=== PATIENT | female | born 1980 | race Caucasian/White ===

== ENCOUNTER 2017-08-30 11:47 | Emergency (ER) | payer BC ==
[2017-08-30 13:23] LABS: Urine Blood 1+ (NEG); Urine Glucose NEGATIVE (NEG); Urine Protein NEGATIVE (NEG); Urine Specific Gravity 1.015 (1.005-1.030); Urine pH 5.5 (5.0-7.0)
[2017-08-30 13:33] LABS: Urine Bacteria <20 /HPF (<20); Urine Culture Reflex Order REFLEXED
--- NOTE | 2017-08-30 13:42 | EDPHYS ---
Physician Documentation [facility] Name: Ольга Mayo Age: 37 yrs Sex: Female : 1980 Arrival Date: 08/30/2017 Time: 11:51 Bed 7 Private MD: ED Physician Jensen Lamar HPI: 08/30 12:58 This 37 yrs old Female presents to ER via Ambulatory with complaints of jr8 Cough, Vaginal Itching, Vaginal Pain. 12:58 Onset: The symptoms/episode began/occurred acutely, 2 day(s) ago. Severity of symptoms: jr8 At their worst the symptoms were mild, in the emergency department the symptoms are unchanged. Associated signs and symptoms: The patient has no apparent associated signs or symptoms. The patient has not experienced similar symptoms in the past. The patient has not recently seen a physician. Patient stated that she has had dry cough for 2 days. Had unprotected sex with boyfriend and is now having burning to vaginal region and urinary complaints. Denies discharge or bleeding . 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 - Social history:: Smoking status: Patient/guardian denies using tobacco. ROS: 12:58 Eyes: Negative for injury, pain, redness, and discharge, ENT: Negative for injury, jr8 pain, and discharge, Neck: Negative for injury, pain, and swelling, Cardiovascular: Negative for chest pain, palpitations, and edema, Abdomen/GI: Negative for abdominal pain, nausea, vomiting, diarrhea, and constipation, Back: Negative for injury and pain, MS/Extremity: Negative for injury and deformity, Skin: Negative for injury, rash, and discoloration, Neuro: Negative for headache, weakness, numbness, tingling, and seizure. 12:58 Respiratory: Positive for cough, Negative for dyspnea on exertion, shortness of breath, sputum production, wheezing. 12:58 : Positive for urinary symptoms, burning with urination, vaginal itching, Negative for vaginal bleeding, vaginal discharge. Exam: 12:58 Eyes: Pupils equal round and reactive to light, extra-ocular motions intact. Lids and jr8 lashes normal. Conjunctiva and sclera are non-icteric and not injected. Cornea within normal limits. Periorbital areas with no swelling, redness, or edema. ENT: Nares patent. No nasal discharge, no septal abnormalities noted. Tympanic membranes are normal and external auditory canals are clear. Oropharynx with no redness, swelling, or masses, exudates, or evidence of obstruction, uvula midline. Mucous membranes moist. Neck: Trachea midline, no thyromegaly or masses palpated, and no cervical lymphadenopathy. Supple, full range of motion without nuchal rigidity, or vertebral point tenderness. No Meningismus. Cardiovascular: Regular rate and rhythm with a normal S1 and S2. No gallops, murmurs, or rubs. Normal PMI, no JVD. No pulse deficits. Respiratory: Lungs have equal breath sounds bilaterally, clear to auscultation and percussion. No rales, rhonchi or wheezes noted. No increased work of breathing, no retractions or nasal flaring. Abdomen/GI: Soft, non-tender, with normal bowel sounds. No distension or tympany. No guarding or rebound. No evidence of tenderness throughout. Back: No spinal tenderness. No costovertebral tenderness. Full range of motion. Skin: Warm, dry with normal turgor. Normal color with no rashes, no lesions, and no evidence of cellulitis. MS/ Extremity: Pulses equal, no cyanosis. Neurovascular intact. Full, normal range of motion. Neuro: Awake and alert, GCS 15, oriented to person, place, time, and situation. Cranial nerves II-XII grossly intact. Motor strength 5/5 in all extremities. Sensory grossly intact. Cerebellar exam normal. Normal gait. 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 Vital Signs: 12:02 BP 144 / 96; Pulse 79; Resp 18; Temp 97.9(TE); Pulse Ox 100% on R/A; Weight 89.81 kg; hj Height 5 ft. 7 in. (170.18 cm); Pain 6/10; 12:22 BP 130 / 62; Pulse 88; Resp 16; Pulse Ox 100% on R/A; aj 13:27 BP 126 / 84; Pulse 79; Resp 18; Pulse Ox 100% on R/A; aj 12:02 Body Mass Index 31.01 (89.81 kg, 170.18 cm) hj MDM: 12:21 Patient medically screened. [facility] 13:39 Data reviewed: vital signs, nurses notes, lab test result(s), and as a result, I will jr8 discharge patient. Data interpreted: Pulse oximetry: on room air is 100 %. Interpretation: normal. Counseling: I had a detailed discussion with the patient and/or guardian regarding: the historical points, exam findings, and any diagnostic results supporting the discharge/admit diagnosis, lab results, the need for outpatient follow up, a family practitioner, to return to the emergency department if symptoms worsen or persist or if there are any questions or concerns that arise at home. 08/30 12:42 Order name: Urine Microscopic Only; Complete Time: 13:38 [facility] 08/30 13:15 Order name: Urine Dipstick--Ancillary (enter results); Complete Time: 13:29 08/30 13:15 Order name: Urine --Ancillary (enter results); Complete Time: 13:29 08/30 13:35 Order name: Urine Culture [facility] 08/30 12:42 Order name: Urine Test (obtain specimen); Complete Time: 13:16 [facility] 08/30 12:42 Order name: Urine Dipstick-Ancillary (obtain specimen); Complete Time: 13:16 [facility] Administered Medications: 13:49 Drug: Rocephin (cefTRIAXone) 250 mg Route: IM; Site: left gluteus; aj 14:07 Follow up: Response: No adverse reaction aj 13:49 Drug: AZITHromycin 1 grams Route: PO; aj 14:07 Follow up: Response: No adverse reaction aj Disposition: 18:32 Co-signature as Attending Physician, Jensen Lamar MD. rn Disposition: 08/30/17 13:41 Discharged to Home. Impression: Dysuria, Cough, Vaginitis, vulvitis and vulvovaginitis in diseases classified elsewhere. - Condition is Stable. - Discharge Instructions: Dysuria, Cough, Adult. - Prescriptions for Doxycycline Hyclate 100 mg Oral Tablet - take 1 tablet by ORAL route every 12 hours; 20 tablet. Tessalon Perles 100 mg Oral Capsule - take 1 capsule by ORAL route every 8 hours As needed; 15 capsule. - Medication Reconciliation Form, Thank You Letter, Antibiotic Education, Prescription Opioid Use form. - Follow up: Private Physician; When: 5 - 6 days; Reason: Recheck today's complaints, Continuance of care, Re-evaluation by your physician. - Problem is new. - Symptoms have improved. Signatures: Dispatcher [employer] Sylvia Jamison, RN RN Jensen Vann MD MD rn Roszak, Josh, PA PA jr8 Elias Kemp RN RN hj
--- NOTE | 2017-08-30 13:42 | ER ---
Nurse's Notes [facility] Name: Ольга Mayo Age: 37 yrs Sex: Female : 1980 Arrival Date: 08/30/2017 Time: 11:51 Bed 7 Private MD: Diagnosis: Dysuria;Cough;Vaginitis, vulvitis and vulvovaginitis in diseases classified elsewhere Presentation: 08/30 11:59 Presenting complaint: Patient states: i have a cough since Wednesday morning, i am burning hj on my vagina area since Wednesday, reports burning urination; denies discharges or bleeding; denies fever and chills;. Transition of care: patient was not received from another setting of care. Onset of symptoms was August 30, 2017. Care prior to arrival: None. 11:59 Method Of Arrival: Ambulatory 11:59 Acuity: YELENA 3 hj Triage Assessment: 12:01 General: Appears in no apparent distress. uncomfortable, Behavior is calm, cooperative, hj appropriate for age. Pain: Complains of pain in groin Pain currently is 6 out of 10 on a pain scale. [facility]: 12:02 [facility] 08/05/2017 Historical: - Allergies: 12:01 No Known Allergies; hj - Home Meds: 12:01 None [Active]; hj - PMHx: 12:01 None; hj - PSHx: 12:01 Cholecystectomy; hj - Immunization history:: Adult Immunizations up to date. - Social history:: Smoking status: Patient/guardian denies using tobacco. Screenin:24 Abuse screen: Denies threats or abuse. Denies injuries from another. Nutritional aj screening: No deficits noted. Tuberculosis screening: No symptoms or risk factors identified. Fall Risk None identified. Assessment: 12:22 General: Appears in no apparent distress. comfortable, Behavior is calm, cooperative, aj appropriate for age. Neuro: Level of Consciousness is awake, alert, obeys commands, Oriented to person, place, time, situation. Respiratory: Airway is patent Respiratory effort is even, unlabored, Respiratory pattern is regular, symmetrical. : Reports burning with urination, pain in suprapubic area vaginal itching, since Wednesday. Derm: Skin is intact, is healthy with good turgor, Skin is pink, warm \T\ dry. normal. Vital Signs: 12:02 BP 144 / 96; Pulse 79; Resp 18; Temp 97.9(TE); Pulse Ox 100% on R/A; Weight 89.81 kg; hj Height 5 ft. 7 in. (170.18 cm); Pain 6/10; 12:22 BP 130 / 62; Pulse 88; Resp 16; Pulse Ox 100% on R/A; aj 13:27 BP 126 / 84; Pulse 79; Resp 18; Pulse Ox 100% on R/A; aj 12:02 Body Mass Index 31.01 (89.81 kg, 170.18 cm) hj ED Course: 11:51 Patient arrived in ED. mr 12:01 Triage completed. hj 12:02 Arm band placed on right wrist. hj 12:06 Sylvia Frye, MALIA is Primary Nurse. aj 12:21 Madhu Moreno PA is PHCP. jr8 12:21 Jensen Lamar MD is Attending Physician. jr8 12:24 Patient has correct armband on for positive identification. aj 13:16 Urine Dipstick--Ancillary (enter results) Sent. aj 14:06 No provider procedures requiring assistance completed. Patient did not have IV access aj during this emergency room visit. Administered Medications: 13:49 Drug: Rocephin (cefTRIAXone) 250 mg Route: IM; Site: left gluteus; aj 14:07 Follow up: Response: No adverse reaction aj 13:49 Drug: AZITHromycin 1 grams Route: PO; aj 14:07 Follow up: Response: No adverse reaction aj Outcome: 13:41 Discharge ordered by . jr8 14:06 Discharged to home ambulatory. aj 14:06 Condition: good 14:06 Discharge instructions given to patient, Instructed on discharge instructions, follow up and referral plans. medication usage, Demonstrated understanding of instructions, follow-up care, medications, Prescriptions given X 2. 14:07 Patient left the ED. aj Signatures: Sylvia Frye, Liza More RN mr Madhu Moreno PA PA jrElias León RN RN Corrections: (The following items were deleted from the chart) 12:04 12:02 Pulse 79bpm; Resp 18bpm; Pulse Ox 100% RA; Temp 97.9F Temporal; 89.81 kg; Height hj 5 ft. 7 in.; BMI: 31.0; Pain 6/10; hj
[2017-08-30] MEDS ORDERED: AZITHROMYCIN 250 MG TAB ONE (13:43)
[2017-08-30] MEDS ORDERED: CEFTRIAXONE 250 MG/VIAL ONE (13:43)
== END 2017-08-30 14:07 | disposition home or self-care (01) ==
LOC: ER 11:47
DX: N77.1 Vaginitis, vulvitis and vulvovaginitis in diseases classified elsewhere (principal); R05 Cough
CPT/HCPCS: 81003; 81015; 81025; 87086; 87088; 96372; 99283; J0696

== ENCOUNTER 2021-01-24 08:39 | Observation (INO) | payer BC ==
--- OUTSIDE RECORDS SUMMARY | 2021-01-24 08:41 | XMS REPORT | Continuity of Care Document ---
:1980 Author Organization [facility] t Address 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 Added automatic ally from request for surgery [id number] Obesity Obesity Problem Active [facility] Allergies, Adverse Reactions, Alerts Allergy Allergy Status Severity Reaction(s) Onset Inactive Treating Comm ents Source Name Type Date Date Clinician Chen Duffy Active Itching 2010-05 [facility] ty to 0-25 [facility] adverse 00:00: [facility]ospita reaction 00 l s to drug Family History Family Member Diagnosis Comments Start Date Stop Date Source Natural father Heart disease [facility] Natural mother [facility]pertension [facility] Social History Social Habit Start Date Stop Date Quantity Comments Source Alcohol intake 2020-08-07 2020-08-07 .14 /d [facility] 00:00:00 00:00:00 Tobacco use and 2020-08-07 2020-08-07 Never used [facility] exposure 00:00:00 00:00:00 Alcohol Comment 2019-09-21 2019-09-21 [facility] 00:00:00 00:00:00 Sex Ass[birth year] At [birth year] [facility] 00:00:00 00:00:00 Smoking Status Start Date Stop Date Source [facility] Ordered Filled Start Stop Current Ordering Indication Dosage Frequency Signature Comments Components Source Medication Medication Date Date Medication? Clinician (SIG) Name Name furosemide Yes [facility] (LASIX) 40 3-[address] mg tablet 00:00: Hospita 00 l potassium 2020-0 Yes [facility] chloride 3-17 st (Klor-Con 00:00: Hospita 10) 10 MEQ 00 l CR tablet amoxicillin amoxicillin No amoxicilli [facility] 875 mg 875 mg n 875 mg da tablet Take tablet Take tablet Medical 1 tablet 1 tablet Take 1 Group twice a day twice a day tablet by oral by oral twice a route with route with day by meals for meals for oral route 10 days. 10 days. with meals for 10 days. cephalexin cephalexin No cephalexin [facility] 500 mg 500 mg 500 mg da capsule capsule capsule Medica l Group furosemide furosemide No furosemide [facility] 80 mg 80 mg 80 mg da tablet tablet tablet Medical Group ibuprofen ibuprofen No ibuprofen [facility] 600 mg 600 mg 600 mg da tablet tablet tablet Medical Group ondansetron ondansetron No ondansetro [facility] HCl 4 mg HCl 4 mg n HCl 4 mg d a tablet tablet tablet Medical Group potassium potassium No potassium [facility] chloride ER chloride ER chloride da 20 mEq 20 mEq ER 20 mEq Medica l tablet,exte tablet,exte tablet,ext Group nded nded ended release release release prednisone prednisone No prednisone [facility] 10 mg 10 mg 10 mg da tablet Take tablet Take tablet Medical one tablet one tablet Take one Group by mouth by mouth tablet by bid for 7 bid for 7 mouth bid days with days with for 7 days meals then meals then with meals once a day once a day then once for 7 days for 7 days a day for with meals with meals 7 days with meals tramadol tramadol No tramadol [facility] 37.5 37.5 37.5 da mg-acetamin mg-acetamin mg-acetami Medical ophen 325 ophen 325 nophen 325 Group mg tablet mg tablet mg tablet Vital Signs Vital Name Observation Time Observation Value Comments Source BP Diastolic 2019-04-07 00:00:00 100 mm[Hg] [facility] Height 2019-04-07 00:00:00 66 [in_i] [facility] BMI (Body Mass 2019-04-07 00:00:00 30.5 kg/m2 [facility] Medical Index) Group BP Systolic 2019-04-07 00:00:00 167 mm[Hg] [facility] Body Weight 2019-04-07 00:00:00 189.1 [lb_av] [facility] BP Diastolic 2019-04-03 00:00:00 91 mm[Hg] [facility] Height 2019-04-03 00:00:00 66 [in_i] [facility] BMI (Body Mass 2019-04-03 00:00:00 30.6 kg/m2 [facility] Medical Index) Group BP Systolic 2019-04-03 00:00:00 145 mm[Hg] [facility] Body Weight 2019-04-03 00:00:00 189.6 [lb_av] [facility] Body height 2020-08-07 16:22:00 167.6 cm [facility] Body weight 2020-08-07 16:22:00 94.348 kg [facility] BMI 2020-08-07 16:22:00 33.57 kg/m2 [facility] Procedures Procedure Date / Time Performing Clinician Source Performed [place] INJECT TENDON 2020-08-07 16:38:23 Moody Agudelo [facility] SHEATH/LIGAMENT TYMPANOMETRY 2019-04-03 00:00:00 [facility] Cholecystectomy 2004-05-24 00:00:00 [facility] Plan of Care Planned Activity Planned Date Details Comments Source Future Scheduled Test COVID-19 VACCINE (1) [facility] [code = COVID-19 VACCINE (1)] Future Scheduled Test Hepatitis C screening [facility] (procedure) [code = 637093024] Future Scheduled Test Screening for [facility] malignant neoplasm of cervix (procedure) [code = 214278074] Future Scheduled Test INFLUENZA VACCINE [facility] [code = INFLUENZA VACCINE] Instructions Geovanna jones Group Encounters Start End Encounter Admission Attending Care Care Encounter Source Date/Time Date/Time Type Type Clinicians Facility Department ID 2020-08-07 2020-08-07 Office Agudelo, [id number] [facility] 10:56:31 11:44:28 Visit [facility] [id number] [facility] 3.430.2.7 Hospit a .[id number] l .8 2020-08-07 2020-08-07 Outpatient [facility] [id number] 00:00:00 00:00:[address] 2020-08-07 2020-08-07 Travel [id number] [facility] 00:00:00 00:00:[id number] 3.430.2.7 0.2.7.3.698 spita .[id number] 084.8 l .8 2019-10-04 2019-10-04 Outpatient AGUDELO, [facility] [id number] 00:00:00 00:00:00 VINCENT 819 Method i 2019-09-28 2019-09-28 Outpatient AGUDELO, [place] [id number] 00:00:00 00:00:00 VINCENT 381 Method i 2019-09-21 2019-09-21 Outpatient AGUDELO, [facility] [id number] 00:00:00 00:00:00 VINCENT 719 Method i 2019-09-21 2019-09-21 Outpatient AGUDELO, [facility] [id number] 00:00:00 00:00:00 VINCENT 771 Method i 2019-09-18 2019-09-18 Outpatient AGUDELO, [facility] [id number] 00:00:00 00:00:00 VINCENT 387 Method i 2019-04-07 2019-04-07 Valente [facility] [place] - [id number] [facility] 00:00:00 00:00:00 MD Selam: [address] - [address], [facility] [place] [address] , Ph. 2019-04-03 2019-04-03 Palshira [facility] [place] - [id number] [facility] 00:00:00 00:00:00 MD Selam: [address], [place] - [address] [place] [address] , Ph. Results Test Description Test Time Test Comments Results Result [facility] e Comments Hand/Upper 2020-07-22 Moody Agudelo MD [facility] Extremity 7 08/07/2020 12:50 Hospi talisha Injection/Arthro 16:38:23 PMHand/Upper Extremity centesis: R Injection/Arthrocentes thumb, R thumb is: R thumb, R thumb A1 A1Date/Time: 08/07/2020 11:38 AMConsent given by: patientSite marked: site markedTimeout: Immediately prior to procedure a time out was called to verify the correct patient, procedure, equipment, account support manager and site/side marked as required Supporting DocumentationIndicatio ns: pain and therapeutic Procedure DetailsSite: R thumb Location: - R thumb A1 Preparation: Patient was prepped and draped in the usual sterile fashion Right side:Needle size: 25 GRight thumb medications administered: 40 mg methylPREDNISolone acetate 40 mg/mL; 1 mL lidocaine 10 mg/mL (1 %)Patient tolerance: patient tolerated the procedure well with no immediate complications Injection Type: tendon sheath SARS coronavirus 2 RNA [Presence] in Respiratory speci men by 2019-09-22 20:40:13 GLENNY with probe detection Test Item Value Reference Range Interpretation Comme nts SARS coronavirus 2 RNA [Presence] in Respiratory Not detected Not-D etected specimen by GLENNY with probe detection (test code = 29501-7) [id number] 15:45:12 Test Item Value Reference Range Interpretation Comments Right (test code = Type C Peak is on Left Right) Left (test code = Left) Type C Peak is on Left [facility] [id number] 15:45:12 Test Item Value Reference Range Interpretation Comments Right (test code = Type C Peak is on Left Right) Left (test code = Left) Type C Peak is on Left [facility]
[2021-01-24] MEDS ORDERED: MORPHINE 2 MG/ML SYR ONE (09:46)
[2021-01-24] MEDS ORDERED: NA CHLORIDE 0.9% 1,000 ML ONE ×2 (09:46→12:44)
[2021-01-24] MEDS ORDERED: ONDANSETRON 4 MG/2 ML VIAL ONE ×2 (09:46→14:40)
[2021-01-24 09:48] LABS: Absolute Lymphocytes (CBC) 0.8 K/uL (0.7-4.9); Basophils % 0.5 % (0-1.3); Hematocrit 37.7 % (36.0-45.0); Lymphocytes % 9.7 % (15.3-44.8); MPV 10.1 fL (7.6-11.3); RBC Red Blood Cell Count 4.42 M/uL (3.86-4.86)
[2021-01-24 10:06] LABS: ALT/SGPT 37 U/L (12-78); AST/SGOT 19 U/L (15-37); Albumin 3.7 g/dL (3.4-5.0); Alkaline Phosphatase 75 U/L (45-117); BUN Blood Urea Nitrogen 9 mg/dL (7-18); Bicarbonate 26 mmol/L (21-32); Bilirubin Direct < 0.1 mg/dL (0-0.2); Bilirubin Total 0.2 mg/dL (0.2-1.0); Glucose Level 93 mg/dL (74-106); Lipase 213 U/L (73-393); Potassium 3.6 mmol/L (3.5-5.1); Protein, Total 7.8 g/dL (6.4-8.2); Sodium Level 138 mmol/L (136-145)
--- NOTE | 2021-01-24 10:43 | RAD REPORT ---
EXAM DESCRIPTION: CTAbdomen Pelvis W Contrast - 01/24/2021 10:31 am CLINICAL HISTORY: Abdominal pain. ABD PAIN COMPARISON: No comparisons TECHNIQUE: Biphasic CT imaging of the abdomen and pelvis was performed with 100 ml non-ionic IV cont rast. All CT scans are performed using dose optimization technique as appropriate and may include automated exposure control or mA/KV adjustment according to patient size. FINDINGS: The lung bases are clear. The liver, spleen, pancreas, adrenal glands and kidneys are within normal limits. Cholecystectomy. No bowel obstruction, free air, free fluid or abscess. There is moderately severe inflammation seen i nvolving the entire colon, but most severe involving the right colon. The appendix is normal. No aman dence of significant lymphadenopathy. No suspicious bony findings. IMPRESSION: Moderately severe pancolitis is present, greatest involving the right colon.
--- NOTE | 2021-01-24 11:08 | EDPHYS ---
Physician Documentation [facility] Name: Ольга Mayo Age: 40 yrs Sex: Female : 1980 Arrival Date: 01/24/2021 Time: 08:42 Bed 27 Private MD: ED Physician Rubia Seymour HPI: 01/24 09:04 This 40 yrs old Female presents to ER via Ambulatory with complaints of kb Abdominal Pain, Vomiting/Diarrhea. 09:04 The patient presents with abdominal pain right lower quadrant. Onset: The kb symptoms/episode began/occurred 4 day(s) ago. The symptoms do not radiate. Associated signs and symptoms: Pertinent positives: nausea, vomiting, and diarrhea, fever. The symptoms are described as constant. Modifying factors: The symptoms are alleviated by nothing, the symptoms are aggravated by pressure. Severity of pain: At its worst the pain was moderate in the emergency department the pain is unchanged. The patient has not experienced similar symptoms in the past. The patient has not recently seen a physician. Historical: - Allergies: 08:47 No Known Allergies; aa5 - PMHx: 08:47 None; aa5 - PSHx: 08:47 Cholecystectomy; section; aa5 - Immunization history:: Client reports having NOT received the Covid vaccine. - Social history:: Smoking status: unknown. ROS: 09:01 Respiratory: Negative for shortness of breath, cough, wheezing, and pleuritic chest kb pain. 09:01 Abdomen/GI: Positive for abdominal pain, nausea, vomiting, and diarrhea. 09:01 All other systems are negative. 09:02 Constitutional: Positive for fever. kb Exam: 09:00 Constitutional: This is a well developed, well nourished patient who is awake, alert, kb and in no acute distress. Head/Face: Normocephalic, atraumatic. ENT: Moist Mucous membranes Cardiovascular: Regular rate and rhythm with a normal S1 and S2. No gallops, murmurs, or rubs. No pulse deficits. Respiratory: Respirations even and unlabored. No increased work of breathing, no retractions or nasal flaring. Skin: Warm, dry with normal turgor. Normal color. MS/ Extremity: Pulses equal, no cyanosis. Neurovascular intact. Full, normal range of motion. Neuro: Awake and alert, GCS 15, oriented to person, place, time, and situation. Moves all extremities. Normal gait. Psych: Awake, alert, with orientation to person, place and time. Behavior, mood, and affect are within normal limits. 09:00 Abdomen/GI: Inspection: abdomen appears normal, Bowel sounds: normal, in all quadrants, Palpation: soft, in all quadrants, mild abdominal tenderness, in the right upper quadrant, moderate abdominal tenderness, in the right lower quadrant. Vital Signs: 08:48 BP 162 / 113; Pulse 79; Resp 16 S; Temp 98.9(O); Pulse Ox 97% on R/A; Weight 91.63 kg aa5 (R); Height 5 ft. 6 in. (167.64 cm) (R); Pain 10/10; 08:48 Body Mass Index 32.60 (91.63 kg, 167.64 cm) aa5 MDM: 08:50 Patient medically screened. kb 09:00 Data reviewed: vital signs, nurses notes. Data interpreted: Pulse oximetry: on room air kb is 97 %. Interpretation: normal. 11:03 Counseling: I had a detailed discussion with the patient and/or guardian regarding: the kb historical points, exam findings, and any diagnostic results supporting the discharge/admit diagnosis, lab results, radiology results, the need for further work-up and treatment in the hospital. Physician consultation: Madhu POSEY was contacted at 11:04, regarding admission, to the medical/surgical unit. patient's condition, and will see patient in ED. 01/24 08:50 Order name: Basic Metabolic Panel; Complete Time: 10:07 kb 01/24 08:50 Order name: CBC with Diff; Complete Time: 09:55 kb 01/24 08:50 Order name: Hepatic Function; Complete Time: 10:07 kb 01/24 08:50 Order name: Lipase; Complete Time: 10:07 kb 01/24 11:03 Order name: COVID-19 : Document "Date of Symptom Onset" if Symptomatic. kb 01/24 11:57 Order name: Fecal Leukocyte Stain 8 01/24 08:50 Order name: CT Abd/Pelvis - IV Contrast Only; Complete Time: 10:54 kb 01/24 11:57 Order name: Occult Blood 8 01/24 11:57 Order name: Ova And Parasites 8 01/24 11:57 Order name: Stool Culture [facility] 01/24 11:57 Order name: CDIFF [facility] 01/24 11:58 Order name: Fecal Leukocyte Stain [facility] 01/24 15:25 Order name: SARS-COV-2 RT PCR; Complete Time: 15:30 [facility] 01/24 08:50 Order name: IV Saline Lock; Complete Time: 09:16 kb 01/24 08:50 Order name: Labs collected and sent; Complete Time: 09:16 kb 01/24 08:50 Order name: Urine Dipstick-Ancillary (obtain specimen) kb Administered Medications: 09:23 Drug: morphine 4 mg Route: IVP; Site: right antecubital; aj2 09:24 Drug: NS 0.9% 1000 ml Route: IV; Rate: 1000 ml; Site: right antecubital; aj2 09:24 Drug: Zofran (Ondansetron) 4 mg Route: IVP; Site: right antecubital; aj2 11:02 CANCELLED (Physician Discretion): metroNIDAZOLE 500 mg PO once kb 11:02 CANCELLED (Physician Discretion): Cipro (ciprofloxacin) 500 mg PO once kb Disposition Summary: 01/24/21 11:07 Hospitalization Ordered Hospitalization Status: Inpatient Admission kb Provider: Levi Lamar Condition: Stable(01/24/21 11:07) kb Problem: new kb Symptoms: are unchanged kb Bed/Room Type: Standard kb Location: Telemetry/MedSurg (Inpatient)(01/24/21 21:01) Room Assignment: [facility](01/24/21 21:01) Diagnosis - Pancolitis kb Forms: - Medication Reconciliation Form kb - SBAR form kb Signatures: Dispatcher [employer] EDIN Amie Pollock, VICENTE-C [employer]-Ckb Adriana Ace RN RN iw Calderon, Audri RN RN Loulou See RN RN Tiffanie Valle aj2 Corrections: (The following items were deleted from the chart) 08:48 08:47 PSHx: Carotid endarterectomy; aa5 [email or web address] 09:02 09:01 Constitutional: Negative for fever, chills, and weight loss, kb kb 11:02 10:54 metroNIDAZOLE 500 mg PO once ordered. kb kb 11:02 10:54 Cipro (ciprofloxacin) 500 mg PO once ordered. kb kb 11:06 11:06 Home kb kb 11: 11:06 Stable kb kb 11:06 Pancolitis kb kb 15: 11:07 Telemetry/MedSurg (Inpatient) kb iw 11: kb iw : 15: [facility] ER HOLD iw cg : 15:27 ERHOLD- iw cg
--- NOTE | 2021-01-24 11:08 | ER ---
Nurse's Notes [facility] Name: Ольга Mayo Age: 40 yrs Sex: Female : 1980 Arrival Date: 01/24/2021 Time: 08:42 Bed 27 Private MD: Diagnosis: Pancolitis Presentation: 01/24 08:48 Chief complaint: Patient states: RLQ pain since Wednesday, vomiting and diarrhea. aa5 Coronavirus screen: diarrhea, nausea, vomiting. Ebola Screen: Patient negative for fever greater than or equal to 101.5 degrees Fahrenheit, and additional compatible Ebola Virus Disease symptoms. Initial Sepsis Screen: Does the patient meet any 2 criteria? No. Patient's initial sepsis screen is negative. Does the patient have a suspected source of infection? No. Patient's initial sepsis screen is negative. Risk Assessment: Do you want to hurt yourself or someone else? Patient reports no desire to harm self or others. Onset of symptoms was 2020. 08:48 Method Of Arrival: Ambulatory aa5 08:48 Acuity: YELENA 3 aa5 Historical: - Allergies: 08:47 No Known Allergies; aa5 - PMHx: 08:47 None; aa5 - PSHx: 08:47 Cholecystectomy; section; aa5 - Immunization history:: Client reports having NOT received the Covid vaccine. - Social history:: Smoking status: unknown. Screenin:57 Abuse screen: Denies threats or abuse. Denies injuries from another. Nutritional aj2 screening: No deficits noted. Tuberculosis screening: No symptoms or risk factors identified. Fall Risk None identified. Assessment: 08:57 Pain: Complains of pain in abdomen Pain radiates to abdomen Pain currently is 10 out of aj2 10 on a pain scale. Quality of pain is described as crampy, Pain began 2-3 days ago. Is continuous, Alleviated by nothing. Aggravated by increased activity, Noted to be grimacing, moaning, Also complains of nausea. Vital Signs: 08:48 BP 162 / 113; Pulse 79; Resp 16 S; Temp 98.9(O); Pulse Ox 97% on R/A; Weight 91.63 kg aa5 (R); Height 5 ft. 6 in. (167.64 cm) (R); Pain 10/10; 08:48 Body Mass Index 32.60 (91.63 kg, 167.64 cm) aa5 ED Course: 08:42 Patient arrived in ED. mr 08:43 [facility]C [facility] kb 08:43 Rubia Seymour MD is Attending Physician. kb 08:47 Arm band placed on. aa5 08:49 Triage completed. aa5 08:52 Tiffanie White is Primary Nurse. aj2 08:57 Patient has correct armband on for positive identification. aj2 08:57 No provider procedures requiring assistance completed. Patient did not have IV access aj2 during this emergency room visit. 09:16 Basic Metabolic Panel Sent. aj2 09:17 CBC with Diff Sent. aj2 09:17 Hepatic Function Sent. aj2 09:17 Lipase Sent. aj2 10:30 CT Abd/Pelvis - IV Contrast Only In Process Unspecified. EDMS 11:07 Levi Lamar MD is Hospitalizing Provider. kb Administered Medications: 09:23 Drug: morphine 4 mg Route: IVP; Site: right antecubital; aj2 09:24 Drug: NS 0.9% 1000 ml Route: IV; Rate: 1000 ml; Site: right antecubital; aj2 09:24 Drug: Zofran (Ondansetron) 4 mg Route: IVP; Site: right antecubital; aj2 11:02 CANCELLED (Physician Discretion): metroNIDAZOLE 500 mg PO once kb 11:02 CANCELLED (Physician Discretion): Cipro (ciprofloxacin) 500 mg PO once kb Outcome: 11:06 Discharge ordered by MD. kb 11:07 Decision to Hospitalize by Provider. kb 21:29 Patient left the ED. ms4 Signatures: Dispatcher [employer] EDMS Amie Pollock FNP-C FNP-Tenisha Amanda MarquezBess RN RN aa5 Betsy Campuzano RN RN ms4 Tiffanie White aj2 Corrections: (The following items were deleted from the chart) 08:48 08:47 PSHx: Carotid endarterectomy; aa5 aa5 08:49 08:48 BP 162 / 113; Pulse 79bpm; Resp 16bpm; Spontaneous; Pulse Ox 97% RA; Temp 98.9F aa5 Oral; aa5
[2021-01-24] MEDS ORDERED: CIPROFLOXACIN 400mg IV 400 MG/200 ML BAG IV ONE (12:10)
[2021-01-24] MEDS ORDERED: METRONIDAZOLE 500mg IVPB 500 MG/100 ML BAG IV ONE ×2 (12:10→20:26)
[2021-01-24 14:05] VITALS: BMI 32.5
[2021-01-24] MEDS ORDERED: ACETAMINOPHEN 500 MG TAB PO PRN (14:05)
[2021-01-24] MEDS ORDERED: ONDANSETRON 4 MG/2 ML VIAL IV PRN (14:05)
[2021-01-24] MEDS ORDERED: MORPHINE 4 MG/ML SYR IV PRN (14:05)
[2021-01-24] MEDS: D5 0.45 NS 1,000 ML IV SCH ×2 (14:05→22:42)
[2021-01-24] MEDS ORDERED: MORPHINE 4 MG/ML SYR ONE ×2 (14:40→14:54)
[2021-01-24] MEDS ORDERED: ACETAMINOPHEN 500 MG TAB ONE ×3 (15:43→20:26)
[2021-01-24] MEDS ORDERED: ENOXAPARIN 40 MG/0.4 ML SQ ONE (16:22)
[2021-01-24] MEDS ORDERED: ENOXAPARIN 40 MG/0.4 ML SQ SCH (17:00)
--- NOTE | 2021-01-24 17:04 | P.HP ---
Certification for Inpatient Patient admitted to: Inpatient With expected LOS: >2 Midnights Patient will require the following post-hospital care: None Practitioner: I am a practitioner with admitting privileges, knowledge of patient current condition, hospital course, and medical plan of care. Services: Services provided to patient in accordance with Admission requirements found in Title 42 Section 412.3 of the Code of Federal Regulations Patient History Date of Service: 01/24/21 Primary Care Provider: [place] Reason for admission: Pancolitis History of Present Illness: This is a 40-year-old female who presented to the emergency room with 4 days of abdominal pain worse on the right lower quadrant. Patient stated that the pain had increased and came to the emergency room for further evaluation. Stated that she is also had vomiting and diarrhea and could not tolerate p.o. fluids or food at home. Patient was worked up in the emergency room and found to have a sodium of 138, potassium 3.6, chloride 107, bicarb 26, BUN 9, creatinine 0.89, glucose 93. Patient had a white cell count of 8, hemoglobin 12.8, hematocrit 37.7, platelet 276. CAT scan was completed in the emergency room with IV contrast showing pancolitis. No abscess or perforation noted. Patient denies any history of this in the past. Patient was started on Cipro and Flagyl in the emergency room and put on pain medications and antiemetics. Medicine was consulted at that time for admission. Allergies No Known Allergies Allergy (Unverified 08/30/17 14:11) Home medications list reviewed: Yes - Past Medical/Surgical History Has patient received pneumonia vaccine in the past: No Diabetic: No - Family History Family History: Reviewed- Non-Contributory - Social History Smoking Status: Never smoker Smoking therapy provided: No Alcohol use: No CD- Drugs: No Caffeine use: No Place of Residence: Home Review of Systems General: Fever, Chills Eyes: Unremarkable ENT: Unremarkable Respiratory: Unremarkable Cardiovascular: Unremarkable Gastrointestinal: Nausea, Vomiting, Abdominal Pain, Diarrhea Musculoskeletal: Unremarkable Integumentary: Unremarkable Neurological: Unremarkable Lymphatics: Unremarkable Physical Examination - Vital Signs Temperature: 97.1 F Blood Pressure: 123/72 Pulse: 72 Respirations: 18 Pulse Ox (%): 100 - Physical Exam General: Alert, Oriented x3, Other (Obvious pain) HEENT: Normocephalic, PERRLA, Mucous membr. moist/pink, EOMI Neck: Supple, 2+ carotid pulse no bruit, JVD not distended Respiratory: Clear to auscultation bilaterally, Normal air movement Cardiovascular: No edema, Normal pulses, Regular rate/rhythm, Normal S1 S2, No gallops, No rubs, No murmurs Capillary refill: <2 Seconds Gastrointestinal: Normal bowel sounds, Tenderness (Moderate tenderness to the right lower quadrant and right mid quadrant mild tenderness to the upper abdomen and left mid abdomen) Musculoskeletal: No clubbing, No swelling, No contractures, No erythema, No ten derness, No warmth Integumentary: No rashes, No breakdown, No significant lesion, No tenderness/swelling, No erythema, No warmth, No cyanosis Neurological: Normal speech, Normal strength at 5/5 x4 extr, Normal tone, Sensation intact, Cranial nerves 3-12 intact, Normal affect Lymphatics: No axilla or inguinal lymphadenopathy - Studies Laboratory Data (last 24 hrs) 01/24/21 09:15: WBC 8.00, Hgb 12.8, Hct 37.7, Plt Count 276 01/24/21 09:15: Sodium 138, Potassium 3.6, BUN 9, Creatinine 0.89, Glucose 93, Total Bilirubin 0.2, AST 19, ALT 37, Alkaline Phosphatase 75, Lipase 213 Assessment and Plan - Problems (Diagnosis) (1) Pancolitis Current Visit: Yes Status: Acute (2) Intractable pain Current Visit: Yes Status: Acute (3) Vomiting Current Visit: Yes Status: Acute Qualifiers: Vomiting type: unspecified Vomiting Intractability: intractable Nausea presence: with nausea Qualified Code(s): R11.2 - Nausea with vomiting, unspecified - Plan 1. Patient admitted to MedSurg unit for further evaluation of her pancolitis 2. Patient placed on Cipro and Flagyl and will continue antibiotics via IV for the next 2 days. Will remain on clear liquids at least for the next 24 hours to see if her p.o. intake will improve. Patient meantime also stay on IV fluids and antiemetics along with pain medicine. 3. Vital signs will be checked per protocol 4. Labs will be evaluated daily 5. DVT prophylaxis 6. The patient does well over the next 48 hours we can transition her to p.o. antibiotics patient will go home. Is been discussed with patient that she will need to follow-up with gastroenterology in the next few weeks as well after this has dissipated for further evaluation and colonoscopy. Discharge Plan: Home Plan to discharge in: 48 Hours - Advance Directives Does patient have a Living Will: No Does patient have a Durable POA for Healthcare: No - Code Status/Comfort Care Code Status Assessed: Yes Code Status: Full Code Critical Care: No Time Spent Managing Pts Care (In Minutes): 70
[2021-01-24] MEDS: METRONIDAZOLE 500mg IVPB 500 MG/100 ML BAG IV SCH (19:00)
[2021-01-24] MEDS ORDERED: ACETAMINOPHEN 500 MG TAB PO ONE (19:00)
[2021-01-24 21:50] VITALS: O2SAT 97
[2021-01-24] MEDS: CIPROFLOXACIN 400mg IV 400 MG/200 ML BAG IV SCH (22:42)
[2021-01-25] MEDS: METRONIDAZOLE 500mg IVPB 500 MG/100 ML BAG IV SCH ×3 (00:09→12:58)
[2021-01-25] MEDS: D5 0.45 NS 1,000 ML IV SCH (05:44)
[2021-01-25 06:20] LABS: Absolute Lymphocytes (CBC) 1.1 K/uL (0.7-4.9); Basophils % 0.5 % (0-1.3); Hematocrit 33.5 % (36.0-45.0); Lymphocytes % 20.5 % (15.3-44.8); MPV 9.9 fL (7.6-11.3); RBC Red Blood Cell Count 3.89 M/uL (3.86-4.86)
[2021-01-25 06:23] LABS: BUN Blood Urea Nitrogen 5 mg/dL (7-18); Bicarbonate 27 mmol/L (21-32); Glucose Level 119 mg/dL (74-106); Potassium 3.5 mmol/L (3.5-5.1); Sodium Level 141 mmol/L (136-145)
[2021-01-25] MEDS ORDERED: METOPROLOL TAR 50 MG TAB PO SCH (09:00)
[2021-01-25] MEDS ORDERED: FUROSEMIDE 40 MG TABLET PO SCH (09:00)
[2021-01-25] MEDS ORDERED: POTASSIUM CL SA 10 MEQ TAB PO SCH (09:00)
[2021-01-25] MEDS: CIPROFLOXACIN 400mg IV 400 MG/200 ML BAG IV SCH (09:56)
[2021-01-25 10:37] LABS: White Blood Cell Scan OK (OK)
[2021-01-25 10:38] LABS: Blood Morphology Comment NOT SEEN (NOT SEEN); Platelet Estimate ADEQ
[2021-01-25 12:27] VITALS: BP 155/77; TEMP 97.2
--- NOTE | 2021-01-25 16:08 | P.DS ---
Admission Date: 01/24/21 Discharge Date: 01/25/21 Primary Care Provider: Rusty Piedra Disposition: ROUTINE DISCHARGE Discharge Condition: GOOD Reason for Admission: Pancolitis Procedures: CT abd/pelvis (01/24): FINDINGS: The lung bases are clear. The liver, spleen, pancreas, adrenal glands and kidneys are within normal limits. Cholecystectomy. No bowel obstruction, free air, free fluid or abscess. There is moderately severe inflammation seen involving the entire colon, but most severe involving the right colon. The appendix is normal. No evidence of significant lymphadenopathy. No suspicious bony findings. IMPRESSION: Moderately severe pancolitis is present, greatest involving the right colon. Problem List Pancolitis with intractable nausea/vomiting Depression/Anxiety Chronic edema, on lasix Brief History of Present Illness: 40-year-old female who presented to the emergency room with 4 days of abdominal pain worse on the right lower quadrant. Patient stated that the pain had increased and came to the emergency room for further evaluation. Stated that she is also had vomiting and diarrhea and could not tolerate p.o. fluids or food at home. Patient was worked up in the emergency room and found to have a sodium of 138, potassium 3.6, chloride 107, bicarb 26, BUN 9, creatinine 0.89, glucose 93. Patient had a white cell count of 8, hemoglobin 12.8, hematocrit 37.7, platelet 276. CAT scan was completed in the emergency room with IV contrast showing pancolitis. No abscess or perforation noted. Patient denies any histor y of this in the past. Patient was started on Cipro and Flagyl in the emergency room and put on pain medications and antiemetics. Hospital Course: Patient was treated with IV Cirpo & flagyl along with IV fluids. She had quick improvement and resolution of her symptoms. She was advanced and tolerating a soft diet on day of discharge and did not require any pain medication or anti- emetic. Discharged home to complete a total of 2 weeks of antibiotics. Fecal leukocytes were found to be positive. Advised to f/u with PCP in 3-5 days. Recommend colonoscopy in near future. Vital Signs/Physical Exam: Temp Pulse Resp BP Pulse Ox 97.2 F 51 16 155/77 H 99 01/25/21 12:00 01/25/21 12:00 01/25/21 12:00 01/25/21 12:00 01/25/21 12:00 General: Alert, In no apparent distress HEENT: Sclerae nonicteric Respiratory: Clear to auscultation bilaterally, Normal air movement Cardiovascular: No edema, Regular rate/rhythm Gastrointestinal: Soft and benign, Non-distended, No tenderness Musculoskeletal: No erythema, No tenderness Integumentary: No rashes Neurological: Normal speech, Normal affect Laboratory Data at Discharge: WBC 5.30 K/uL (4.3-10.9) D 01/25/21 05:24 Hgb 11.4 g/dL (12.0-15.0) L 01/25/21 05:24 Hct 33.5 % (36.0-45.0) L 01/25/21 05:24 Plt Count 252 K/uL (152-406) 01/25/21 05:24 Sodium 141 mmol/L (136-145) 01/25/21 05:24 Potassium 3.5 mmol/L (3.5-5.1) 01/25/21 05:24 BUN 5 mg/dL (7-18) L 01/25/21 05:24 Creatinine 0.69 mg/dL (0.55-1.3) 01/25/21 05:24 Glucose 119 mg/dL (74-106) H 01/25/21 05:24 Total Bilirubin 0.2 mg/dL (0.2-1.0) 01/24/21 09:15 AST 19 U/L (15-37) 01/24/21 09:15 ALT 37 U/L (12-78) 01/24/21 09:15 Alkaline Phosphatase 75 U/L (45-117) 01/24/21 09:15 Lipase 213 U/L (73-393) 01/24/21 09:15 Home Medications: Furosemide 40 mg PO DAILY 01/24/21 Metoprolol Tartrate 50 mg PO DAILY 01/24/21 Paroxetine HCl [Paxil] 20 mg PO BEDTIME 01/24/21 Potassium Chloride [Klor-Con 10] 20 meq PO DAILY 01/24/21 Zolpidem Tartrate [Ambien] 10 mg PO BEDTIME 01/24/21 Ciprofloxacin HCl 500 mg PO BID 12 Days #24 tablet 01/25/21 Ondansetron [Zofran] 4 mg PO Q8H PRN 4 Days #10 tab 01/25/21 metroNIDAZOLE [Flagyl] 500 mg PO Q8H 12 Days #36 tablet 01/25/21 New Medications: Ciprofloxacin HCl 500 mg PO BID 12 Days #24 tablet metroNIDAZOLE [Flagyl] 500 mg PO Q8H 12 Days #36 tablet Ondansetron [Zofran] 4 mg PO Q8H PRN 4 Days #10 tab PRN Reason: Nausea / Vomiting Followup: [facility] [Primary Care Provider] - Time spent managing pt's care (in minutes): 40
[2021-01-25] MEDS ORDERED: ZOLPIDEM TARTRATE 10 MG TABLET PO SCH (21:00)
[2021-01-25] MEDS ORDERED: PARoxetine HCL 10 MG TAB PO SCH (21:00)
== END 2021-01-25 16:20 | disposition home or self-care (01) ==
LOC: ER 08:39 → ERHOLD 12:14 → INTOOBSV 12:14 → 2ND 21:23
PROVIDERS: ADMIT Hospitalist; ATTEND Hospitalist
DX: K51.00 Ulcerative (chronic) pancolitis without complications (principal); R11.2 Nausea with vomiting, unspecified; R60.9 Edema, unspecified; F41.8 Other specified anxiety disorders; Z79.899 Other long term (current) drug therapy; Z90.49 Acquired absence of other specified parts of digestive tract; Z20.822 Contact with and (suspected) exposure to COVID-19
CPT/HCPCS: 87045; 85025 ×2; 80048 ×2; 36415; 89055; 87177; 82274; 80076; 87046; 87209; 83690; 74177; 96375; 96374; 99283; U0003; Q9967; J1650; J2270; J7799 ×3; J7030 ×2; J2405 ×3; J0744 ×3; G0378 ×3; J7060